=== PATIENT | female | born 1975 | race Hispanic/Latino ===

== ENCOUNTER 2017-09-10 23:26 | Emergency (ER) | payer SELFPAY ==
[2017-09-11 00:46] LABS: Absolute Lymphocytes (CBC) 1.1 K/uL (0.7-4.9); Absolute Monocytes 0.9 K/uL (0.1-1.3); Absolute Neutrophil 8.8 K/uL (1.8-8.0); Basophils % 0.2 % (0-1.3); Hematocrit 33.8 % (36.0-45.0); Lymphocytes % 10.3 % (15.3-44.8); MCH 31.3 pg (27.0-35.0); MCV 89.4 fL (80-100); MPV 8.7 fL (7.6-11.3); Monocytes % 7.8 % (3.3-12.3); RBC Red Blood Cell Count 3.79 M/uL (3.86-4.86)
[2017-09-11 00:47] LABS: Bicarbonate 23 mEq/L (21-31); Glucose Level 176 mg/dL (65-120); Lipase 23 U/L (22-51); Potassium 3.6 mEq/L (3.6-5.0); Sodium Level 138 mEq/L (135-145)
[2017-09-11 00:53] LABS: ALT/SGPT 56 IU/L (10-60); AST/SGOT 78 IU/L (10-42); Albumin 3.5 g/dL (3.2-5.5); Alkaline Phosphatase 70 IU/L (42-121); Amylase Level 38 U/L (28-100); BUN Blood Urea Nitrogen 11 mg/dL (6-20); Bilirubin Direct 0.1 mg/dL (0-0.2); Bilirubin Total 0.8 mg/dL (0.3-1.2); Protein, Total 7.2 g/dL (6.0-8.3)
[2017-09-11 01:11] LABS: Urine Blood 2+ (NEG); Urine Glucose NEGATIVE (NEG); Urine Protein NEGATIVE (NEG)
[2017-09-11 01:16] LABS: Urine Bacteria 20-50 /HPF (<20); Urine Culture Reflex Order REFLEXED; Urine RBC <5 /HPF (NONE SEEN)
[2017-09-11] MEDS ORDERED: TAMSULOSIN 0.4 MG SR CAP ONE (02:57)
[2017-09-11] MEDS ORDERED: NA CHLORIDE 0.9% 1,000 ML ONE (02:57)
[2017-09-11] MEDS ORDERED: KETOROLAC 30 MG/ML INJ ONE (02:57)
[2017-09-11] MEDS ORDERED: CEFTRIAXONE/SWI 1gm 1 GM/10 ML SYR ONE (02:57)
[2017-09-11] MEDS ORDERED: MAGNESIUM SULFATE 1 gm IVPB 1 GM/100 ML BAG IV ONE (02:57)
--- NOTE | 2017-09-11 03:17 | ER ---
Nurse's Notes [facility] Name: Katja Greenwood Age: 41 yrs Sex: Female : 1975 Arrival Date: 09/10/2017 Time: 23:28 Bed 23 Private MD: Diagnosis: Calculus of ureter-Left Presentation: 09/10 23:42 Presenting complaint: Patient states: C/O left side flank pain, pain with urination. rk2 Frequent urination. Right lower quad pain. Fever. Onset yesterday. Transition of care: patient was not received from another setting of care. Onset of symptoms was September 09, 2017. Risk Assessment: Do you want to hurt yourself or someone else? Patient reports no desire to harm self or others. Initial Sepsis Screen: Does the patient meet any 2 criteria? HR > 90 bpm. No. Patient's initial sepsis screen is negative. Does the patient have a suspected source of infection? Yes:. Care prior to arrival: None. 23:42 Method Of Arrival: Ambulatory rk2 23:42 Acuity: LATISHA 4 rk2 Triage Assessment: 23:51 General: Appears in no apparent distress. well groomed, well developed, well nourished, rk2 Behavior is calm, cooperative. Pain: Complains of pain in Right Flank, RLQ. Neuro: Level of Consciousness is alert, obeys commands, Oriented to person, place, time, situation. Respiratory: Airway is patent Respiratory effort is even, unlabored, Respiratory pattern is regular, symmetrical. GI: Reports. : Reports pain with urination, urinary frequency. Derm: Skin is pink, warm \T\ dry. 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 - Social history:: Smoking status: unknown. - Ebola Screening: : Patient negative for fever greater than or equal to 101.5 degrees Fahrenheit, and additional compatible Ebola Virus Disease symptoms. Screenin:54 Abuse screen: Denies threats or abuse. Nutritional screening: No deficits noted. rk2 Tuberculosis screening: No symptoms or risk factors identified. Fall Risk None identified. Assessment: 09/11 01:05 Reassessment: Pt. taken to CT by wheelchair. rk2 01:42 Reassessment: Patient appears in no apparent distress at this time. No changes from rk2 previously documented assessment. Patient and/or family updated on plan of care and expected duration. Pain level reassessed. Patient is alert, oriented x 3, equal unlabored respirations, skin warm/dry/pink. Pt. returned from CT. 03:53 Reassessment: Patient is alert, oriented x 3, equal unlabored respirations, skin bb warm/dry/pink. pt states she is feeling better denies pain at this time, pt verbalized understanding of and agrees to plan of care discharge instructions given pt ambulated with steady gait to exit accompanied by family. Vital Signs: 09/10 23:45 BP 113 / 74; Pulse 105; Resp 18; Temp 98.8(O); Pulse Ox 98% on R/A; rk2 09/11 03:00 BP 104 / 75; Pulse 100; Resp 18; Pulse Ox 100% on R/A; rk2 03:53 BP 93 / 63; Pulse 101; Resp 16 S; Temp 98.9(O); Pulse Ox 100% on R/A; Pain 0/10; bb ED Course: 09/10 23:28 Patient arrived in ED. ds1 23:34 Soniya Purvis, SHEREE is Primary Nurse. rk2 23:44 Triage completed. rk2 23:49 Charles Renee PA is PHCP. cp 23:49 Charles Frausto MD is Attending Physician. cp 23:54 Patient has correct armband on for positive identification. Placed in gown. Bed in low rk2 position. Call light in reach. 09/11 01:04 CT Abd/Pelvis - W/Contrast: no oral contrast Sent. rk2 01:[address] via wheelchair. kw1 01:24 CT completed. Patient tolerated procedure well. Patient moved back from CT. kw1 01:25 CT Abd/Pelvis - W/Contrast: no oral contrast In Process Unspecified. EDMS 03:17 Joshua Amado MD is Referral Physician. cp 03:54 No provider procedures requiring assistance completed. IV discontinued, intact, bb bleeding controlled, No redness/swelling at site. Pressure dressing applied. Administered Medications: Discontinued: Magnesium Sulfate 2 grams IVPB once over 2 hrs 03:10 Drug: Flomax 0.4 mg Route: PO; rk2 03:52 Follow up: Response: No adverse reaction bb 03:10 Drug: NS 0.9% 1000 ml Route: IV; Rate: 1 bolus; Site: right antecubital; rk2 03:52 Follow up: IV Status: Completed infusion; IV Intake: 1000ml bb 03:10 Drug: Rocephin - (cefTRIAXone) 1 grams Route: IVPB; Infused Over: 30 mins; Site: right rk2 antecubital; 03:52 Follow up: IV Status: Completed infusion; IV Intake: 50ml bb 03:11 Drug: TORadol 30 mg Route: IVP; Site: right antecubital; rk2 03:52 Follow up: Response: Pain is decreased bb 03:11 Drug: Magnesium Sulfate 2 grams Route: IVPB; Infused Over: 2 hrs; Site: right rk2 antecubital; 03:17 Follow up: Response: No adverse reaction; IV Status: Order to discontinue infusion rk2 03:16 Drug: Magnesium Sulfate 1 grams Route: IVPB; Infused Over: 1 hrs; Site: right rk2 antecubital; 03:52 Follow up: IV Status: Completed infusion; IV Intake: 100ml bb Intake: 03:52 IV: 1000ml; Total: 1000ml. bb 03:52 IV: 50ml; Total: 1050ml. bb 03:52 IV: 100ml; Total: 1150ml. bb Outcome: 03:17 Discharge ordered by MD. cp 03:54 Discharged to home ambulatory, with family. bb 03:54 Condition: stable 03:54 Discharge instructions given to patient, family, Instructed on discharge instructions, follow up and referral plans. medication usage, Demonstrated understanding of instructions, follow-up care, medications, Prescriptions given X 4. 03:55 Patient left the ED. bb Addendum: 09/14/2017 08:51 Addendum: Culture Results: Positive urine culture. No further action required. Bacteria i w sensitive to prescribed antibiotic. Bacteria is resistant to, has intermediate sensitivity, or is not tested against prescribed antibiotics. Report given to EPHRAIM for further evaluation and then to patient scheduling manager for follow up with patient. Signatures: Dispatcher [facility] [facility] Ivy Sterling ds1 Alexandra Ortiz RN RN bb Radha Allen RN RN iw Charles Renee PA PA Angy Kowalski kw1 Soniya Purvis RN RN rk2 Corrections: (The following items were deleted from the chart) 09/10 23:54 23:42 Presenting complaint: Patient states: C/O left side flank pain, pain with rk2 urination. Right lower quad pain. Fever. Onset yesterday. rk2
--- NOTE | 2017-09-11 03:56 | EDPHYS ---
Physician Documentation [facility] Name: Katja Greenwood Age: 41 yrs Sex: Female : 1975 Arrival Date: 09/10/2017 Time: 23:28 Bed 23 Private MD: ED Physician Charles Frausto HPI: 09/10 23:52 This 41 yrs old Female presents to ER via Ambulatory with complaints of Flank cp Pain, Fever, Urinary Frequency. 23:52 The patient complains of pain in the left mid back. The pain radiates to the abdomen. cp Onset: The symptoms/episode began/occurred yesterday. Associated signs and symptoms: Pertinent positives: dysuria, fever, urinary frequency, Pertinent negatives: diarrhea, pain radiating to the lower extremities, vomiting. Severity of pain: in the emergency department the pain is unchanged despite home interventions. 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 - Social history:: Smoking status: unknown. - Ebola Screening: : Patient negative for fever greater than or equal to 101.5 degrees Fahrenheit, and additional compatible Ebola Virus Disease symptoms. ROS: 23:58 Constitutional: Negative for body aches, chills, fever, poor PO intake. cp 23:58 Eyes: Negative for injury, pain, redness, and discharge. cp 23:58 ENT: Negative for drainage from ear(s), ear pain, sore throat, difficulty swallowing, difficulty handling secretions. 23:58 Cardiovascular: Negative for chest pain, edema, palpitations. 23:58 Respiratory: Negative for cough, shortness of breath, wheezing. 23:58 Abdomen/GI: Positive for abdominal pain, nausea, Negative for vomiting, diarrhea, constipation, anorexia. 23:58 Back: Positive for flank pain, on the left. 23:58 : Positive for urinary frequency, Negative for pelvic pain, vaginal bleeding, vaginal discharge. 23:58 MS/extremity: Negative for injury or acute deformity, decreased range of motion, pain, paresthesias. 23:58 Skin: Negative for cellulitis, rash. 23:58 Neuro: Negative for altered mental status, dizziness, headache, weakness. 23:58 All other systems are negative. Exam: 23:59 Constitutional: The patient appears in no acute distress, alert, awake, non-toxic, well cp developed, well nourished, uncomfortable. 23:59 Head/Face: Normocephalic, atraumatic. cp 23:59 Eyes: Periorbital structures: appear normal, Pupils: equal, round, and reactive to light and accomodation, Conjunctiva: normal, no exudate, no injection, Sclera: no appreciated abnormality, Lids and lashes: appear normal, bilaterally. 23:59 ENT: External ear(s): are unremarkable, Ear canal(s): are normal, clear, TM's: dullness, bilaterally, Nose: is normal, Mouth: Lips: moist, Oral mucosa: pink and intact, moist, Posterior pharynx: is normal, airway is patent, no erythema, no exudate. 23:59 Neck: ROM/movement: is normal, is supple, without pain, no range of motions limitations, no nuchal rigidity. 23:59 Chest/axilla: Inspection: normal, Palpation: is normal, no crepitus, no tenderness. 23:59 Cardiovascular: Rate: tachycardic, Rhythm: regular. 23:59 Respiratory: the patient does not display signs of respiratory distress, Respirations: normal, no use of accessory muscles, no retractions, no splinting, no tachypnea, labored breathing, is not present, Breath sounds: are clear throughout, no decreased breath sounds, no stridor, no wheezing. 23:59 Abdomen/GI: Inspection: abdomen appears normal, Bowel sounds: active, all quadrants, Palpation: soft, in all quadrants, moderate abdominal tenderness, in the right lower quadrant and left lower quadrant, rebound tenderness, is not appreciated. 23:59 Back: ROM is normal, CVA tenderness, is noted on the left. 23:59 Skin: cellulitis, is not appreciated, no rash present. 23:59 Neuro: Orientation: to person, place \T\ time. Mentation: lucid, able to follow commands, Cerebellar function: is grossly normal, Motor: moves all fours, strength is normal, Sensation: no obvious gross deficits. Vital Signs: 23:45 BP 113 / 74; Pulse 105; Resp 18; Temp 98.8(O); Pulse Ox 98% on R/A; rk2 09/11 03:00 BP 104 / 75; Pulse 100; Resp 18; Pulse Ox 100% on R/A; rk2 03:53 BP 93 / 63; Pulse 101; Resp 16 S; Temp 98.9(O); Pulse Ox 100% on R/A; Pain 0/10; bb MDM: 09/10 23:49 Patient medically screened. 09/11 00:00 Differential diagnosis: nephrolithiasis, pyelonephritis, UTI, diverticulitis, cp pancreatitis, ruptured AAA, dissecting AAA. 03:15 Data reviewed: vital signs, nurses notes, lab test result(s), radiologic studies, CT cp scan, and as a result, I will discharge patient. 03:15 Counseling: I had a detailed discussion with the patient and/or guardian regarding: the cp historical points, exam findings, and any diagnostic results supporting the discharge/admit diagnosis, lab results, radiology results, to return to the emergency department if symptoms worsen or persist or if there are any questions or concerns that arise at home. Response to treatment: the patient's symptoms have markedly improved after treatment, and as a result, I will discharge patient. 09/10 23:50 Order name: Amylase, Serum; Complete Time: 09/10 23:50 Order name: Basic Metabolic Panel; Complete Time: 09/11 01:59 Interpretation: Normal except: GLUC 176; CA 8.2. 09/10 23:50 Order name: CBC with Diff; Complete Time: 09/11 02:48 Interpretation: Normal except: RBC 3.79; HGB 11.8; HCT 33.8; LYM% 10.3; JANAE% 81.7; NEUT cp A 8.8. 09/10 23:50 Order name: Creatinine for Radiology; Complete Time: :59 09/10 23:50 Order name: Hepatic Function; Complete Time: 09/11 02:48 Interpretation: Normal except: SGOT 78; GLOB 3.7; A/G 0.9. 09/10 23:50 Order name: Lipase; Complete Time: 59 09/10 23:50 Order name: Urine Microscopic Only; Complete Time: : 09/11 02:00 Interpretation: Normal except: UBACT 20-50. 09/10 23:53 Order name: Urine Dipstick--Ancillary (enter results); Complete Time: 01:59 2 09/11 02:00 Interpretation: Normal except: UKET 1+; UBLD 2+; UESTR 1+. 09/10 23:53 Order name: Urine --Ancillary (enter results); Complete Time: 01:59 [facility] 09/11 02:00 Interpretation: URINE PREG NEG; Reviewed. cp 09/10 23:56 Order name: CT Abd/Pelvis - W/Contrast: no oral contrast 09/11 01:18 Order name: Urine Culture EDOR 09/10 23:50 Order name: Urine Test (obtain specimen); Complete Time: 00:09 09/10 23:50 Order name: IV Saline Lock; Complete Time: 00:09 09/10 23:50 Order name: Labs collected and sent; Complete Time: 00:10 09/10 23:50 Order name: Urine Dipstick-Ancillary (obtain specimen); Complete Time: 00:10 cp 09/11 03:01 Order name: Urine Strainer; Complete Time: 03:18 cp Administered Medications: Discontinued: Magnesium Sulfate 2 grams IVPB once over 2 hrs 03:10 Drug: Flomax 0.4 mg Route: PO; rk2 03:52 Follow up: Response: No adverse reaction bb 03:10 Drug: NS 0.9% 1000 ml Route: IV; Rate: 1 bolus; Site: right antecubital; rk2 03:52 Follow up: IV Status: Completed infusion; IV Intake: 1000ml bb 03:10 Drug: Rocephin - (cefTRIAXone) 1 grams Route: IVPB; Infused Over: 30 mins; Site: right rk2 antecubital; 03:52 Follow up: IV Status: Completed infusion; IV Intake: 50ml bb 03:11 Drug: TORadol 30 mg Route: IVP; Site: right antecubital; rk2 03:52 Follow up: Response: Pain is decreased bb 03:11 Drug: Magnesium Sulfate 2 grams Route: IVPB; Infused Over: 2 hrs; Site: right rk2 antecubital; 03:17 Follow up: Response: No adverse reaction; IV Status: Order to discontinue infusion rk2 03:16 Drug: Magnesium Sulfate 1 grams Route: IVPB; Infused Over: 1 hrs; Site: right rk2 antecubital; 03:52 Follow up: IV Status: Completed infusion; IV Intake: 100ml bb Disposition: 09/11/17 03:17 Discharged to Home. Impression: Calculus of ureter - Left. - Condition is Stable. - Discharge Instructions: Kidney Stones, Ureteral Colic. - Prescriptions for Flomax 0.4 mg Oral Capsule, Sust. Release 24 hr - take 1 capsule by ORAL route once daily for 5 days 1/2 hour following the same meal each day; 5 capsule. Cipro 500 mg Oral Tablet - take 1 tablet by ORAL route every 12 hours for 7 days; 14 tablet. Zofran 4 mg Oral Tablet - take 1 tablet by ORAL route every 12 hours As needed; 20 tablet. Tylenol- Codeine #3 300-30 mg Oral Tablet - take 2 tablets by ORAL route every 6 hours As needed no driving while taking medication; 20 tablet. - Medication Reconciliation Form, Thank You Letter, Antibiotic Education, Prescription Opioid Use form. - Follow up: Joshua Amado; When: 2 - 3 days; Reason: if symptoms continue. - Problem is new. - Symptoms have improved. Addendum: 09/14/2017 10:00 Co-signature as Attending Physician, Charles Frausto MD I agree with the assessment and c chaves plan of care. Signatures: Dispatcher [employer] EDCharles Elizalde MD MD cha Ballard, Brenda, RN RN Charles Silverman PA PA cp Kidder, Rhonda, RN RN rk2 Corrections: (The following items were deleted from the chart) 09/11 02:48 01:59 Normal except: RBC 3.79; HGB 11.8; HCT 33.8. cp cp 03:55 03:17 09/11/2017 03:17 Discharged to Home. Impression: Calculus of ureter - Left. bb Condition is Stable. Discharge Instructions: Kidney Stones, Ureteral Colic. Prescriptions for Flomax 0.4 mg Oral Capsule, Sust. Release 24 hr - take 1 capsule by ORAL route once daily for 5 days 1/2 hour following the same meal each day; 5 capsule, Cipro 500 mg Oral Tablet - take 1 tablet by ORAL route every 12 hours for 7 days; 14 tablet, Zofran 4 mg Oral Tablet - take 1 tablet by ORAL route every 12 hours As needed; 20 tablet, Tylenol-Codeine #3 300-30 mg Oral Tablet - take 2 tablets by ORAL route every 6 hours As needed no driving while taking medication; 20 tablet. and Forms are Medication Reconciliation Form, Thank You Letter, Antibiotic Education, Prescription Opioid Use. Follow up: Joshua Amado; When: 2 - 3 days; Reason: if symptoms continue. Problem is new. Symptoms have improved. cp
--- NOTE | 2017-09-11 09:08 | RAD REPORT ---
EXAM DESCRIPTION: CT - Abdomen Pelvis W Contrast - 09/11/2017 5:16 am CLINICAL HISTORY: Abdominal pain/right lower quadrant pain. Left flank pain. Fever COMPARISON: none. TECHNIQUE: Computed axial tomography of the abdomen pelvis was obtained. 100 cc Isovue-300 was admin istered intravenously. Oral contrast was not requested which limits evaluation of bowel.A preliminary report was generated by [employer] and reviewed prior to this dictation All CT scans are performed using dose optimization technique as appropriate and may include automated exposure control or mA/KV adjustment according to patient size. FINDINGS: The liver, spleen, pancreas, adrenal and right kidney appear unremarkable. Low-density is present within the upper pole of the left kidney reaching the periphery. The wall of p ortions of the left ureter enhance. A 2 millimeter calculus is present within the left pelvis. Minima l right hydronephrosis is present. There is no evidence of diverticulitis. The appendix is normal. IMPRESSION: Low-density within the left kidney consistent with mild to moderate pyelonephritis. Enha ncing wall of the left ureter indicative of additional infection. 2 millimeter calculus within the le ft pelvis. The left ureter is not well visualized with respect to the calculus. This probably represe nts a phlebolith. A nonobstructing calculus although possible is considered less likely
== END 2017-09-11 03:55 | disposition home or self-care (01) ==
LOC: ER 23:26
DX: N20.1 Calculus of ureter (principal)
CPT/HCPCS: 36415; 74177; 80048; 80076; 81003; 81015; 81025; 82150; 83690; 85025; 87077; 87086; 87088; 87186; 96365; 96375; 99284; J0696; J3475; J7030; Q9967

== ENCOUNTER 2019-06-10 18:41 | Emergency (ER) | payer SELFPAY ==
[2019-06-10] MEDS ORDERED: NA CHLORIDE 0.9% 1,000 ML ONE (20:15)
[2019-06-10] MEDS ORDERED: ACETAMINOPHEN 500 MG TAB ONE (20:15)
[2019-06-10 20:37] LABS: Absolute Lymphocytes (CBC) 0.5 K/uL (0.7-4.9); Basophils % 0.1 % (0-1.3); Lymphocytes % 6.5 % (15.3-44.8); MPV 8.1 fL (7.6-11.3); RBC Red Blood Cell Count 3.99 M/uL (3.86-4.86)
[2019-06-10 20:39] LABS: Urine Blood 2+ (NEG); Urine Glucose NEGATIVE (NEG); Urine Protein 1+ (NEG)
[2019-06-10] MEDS ORDERED: CEFTRIAXONE/SWI 1gm 1 GM/10 ML SYR ONE (20:49)
[2019-06-10 20:52] LABS: Potassium 3.4 mmol/L (3.5-5.1)
[2019-06-10 21:00] LABS: Urine Amorphous Sediment 1+ /HPF (NONE SEEN); Urine Bacteria LOADED /HPF (<20); Urine Culture Reflex Order NOT NEEDED; Urine Mucus 2+ /HPF (NONE SEEN)
[2019-06-10 21:01] LABS: Blood Morphology Comment NOT SEEN (NOT SEEN); Platelet Estimate ADEQ; Urine White Blood Cell Casts OK
--- NOTE | 2019-06-10 21:58 | EDPHYS ---
Physician Documentation [facility] Name: Katja Greenwood Age: 43 yrs Sex: Female : 1975 Arrival Date: 06/10/2019 Time: 18:46 Bed 27 Private MD: ED Physician Kelvin Johnson HPI: 06/09 21:55 This 43 yrs old Female presents to ER via Ambulatory with complaints of flank kb pain and fever. 21:55 The patient complains of pain in the right flank. The pain radiates to the abdomen. kb Onset: The symptoms/episode began/occurred last night. Modifying factors: The symptoms are alleviated by nothing. the symptoms are aggravated by palpation/percussion. Associated signs and symptoms: Pertinent positives: dysuria, fever, urinary frequency, Pertinent negatives: diarrhea, dizziness, headache, hematuria, nausea, pain radiating to the lower extremities, vomiting. Severity of pain: At its worst the pain was moderate in the emergency department the pain is unchanged. The patient has not experienced similar symptoms in the past. The patient has not recently seen a physician. 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 - Social history:: Smoking status: Patient denies any tobacco usage or history of. ROS: 21:55 Cardiovascular: Negative for chest pain, palpitations, and edema, Respiratory: Negative kb for shortness of breath, cough, wheezing, and pleuritic chest pain, MS/Extremity: Negative for injury and deformity, Skin: Negative for injury, rash, and discoloration, Neuro: Negative for headache, weakness, numbness, tingling, and seizure. 21:55 Constitutional: Positive for fever. 21:55 Abdomen/GI: Positive for abdominal pain. 21:55 : Positive for flank pain, urinary frequency, burning with urination. Exam: 21:55 Constitutional: This is a well developed, well nourished patient who is awake, alert, kb and in no acute distress. Head/Face: Normocephalic, atraumatic. Neck: Trachea midline, no thyromegaly or masses palpated, and no cervical lymphadenopathy. Supple, full range of motion without nuchal rigidity, or vertebral point tenderness. No Meningismus. Chest/axilla: Normal chest wall appearance and motion. Nontender with no deformity. No lesions are appreciated. Cardiovascular: Regular rate and rhythm with a normal S1 and S2. No gallops, murmurs, or rubs. Normal PMI, no JVD. No pulse deficits. Respiratory: Lungs have equal breath sounds bilaterally, clear to auscultation and percussion. No rales, rhonchi or wheezes noted. No increased work of breathing, no retractions or nasal flaring. Skin: Warm, dry with normal turgor. Normal color with no rashes, no lesions, and no evidence of cellulitis. MS/ Extremity: Pulses equal, no cyanosis. Neurovascular intact. Full, normal range of motion. Neuro: Awake and alert, GCS 15, oriented to person, place, time, and situation. Cranial nerves II-XII grossly intact. Motor strength 5/5 in all extremities. Sensory grossly intact. Cerebellar exam normal. Normal gait. 21:55 Abdomen/GI: Inspection: abdomen appears normal, Bowel sounds: normal, in all quadrants, Palpation: moderate abdominal tenderness, in the right upper quadrant and right lower quadrant. 21:55 Back: CVA tenderness, that is moderate, is noted on the right. Vital Signs: 19:47 BP 135 / 83; Pulse 113; Resp 20; Temp 102.8; Pulse Ox 97% on R/A; aj1 20:52 BP 107 / 66; Pulse 93; Resp 17; Pulse Ox 100% on R/A; mg2 21:17 Temp 98.6(O); mg2 MDM: 19:06 Patient medically screened. kb 20:01 Patient medically screened. kb 21:57 Data reviewed: vital signs, nurses notes. Data reviewed: lab test result(s), radiologic kb studies. Data interpreted: Pulse oximetry: on room air is 100 %. Interpretation: normal. Counseling: I had a detailed discussion with the patient and/or guardian regarding: the historical points, exam findings, and any diagnostic results supporting the discharge/admit diagnosis, lab results, radiology results, the need for outpatient follow up, a family practitioner, to return to the emergency department if symptoms worsen or persist or if there are any questions or concerns that arise at home. 06/09 20:02 Order name: CBC with Diff; Complete Time: 21:06 kb 06/09 20:02 Order name: Basic Metabolic Panel; Complete Time: 20:54 kb 06/09 20:07 Order name: Urine Culture mg2 06/09 20:07 Order name: Urine Microscopic Only; Complete Time: 21:06 mg2 06/09 20:32 Order name: Urine Dipstick--Ancillary (enter results); Complete Time: 20:40 sp 06/09 20:32 Order name: Urine --Ancillary (enter results); Complete Time: 20:40 sp 06/09 20:02 Order name: IV Start; Complete Time: 20:21 kb 06/09 20:02 Order name: CT Abd/Pelvis - IV Contrast Only kb 06/09 20:39 Order name: CBC Smear Scan; Complete Time: 21:06 EDMS Administered Medications: 20:21 Drug: Tylenol 1000 mg Route: PO; mg2 21:22 Follow up: Response: No adverse reaction; Temperature is decreased mg2 20:21 Drug: NS 0.9% 1000 ml Route: IV; Rate: 1000 ml; Site: right antecubital; mg2 21:23 Follow up: Response: No adverse reaction; IV Status: Completed infusion; IV Intake: mg2 1000ml 20:49 Drug: Rocephin 1 grams Route: IV; Rate: calculated rate; Site: right antecubital; mg2 Disposition: 06/10 03:29 Co-signature as Attending Physician, Kelvin Johnson MD I agree with the assessment and tw4 plan of care. Disposition: 06/10/19 21:58 Discharged to Home. Impression: Acute tubulo-interstitial nephritis. - Condition is Stable. - Discharge Instructions: Pyelonephritis, Adult, [id number]. - Prescriptions for cefpodoxime 200 mg Oral Tablet - take 1 tablet by ORAL route every 12 hours for 10 days with food; 20 tablet. - Medication Reconciliation Form, Thank You Letter, Antibiotic Education, Prescription Opioid Use form. - Follow up: Emergency Department; When: As needed; Reason: Worsening of condition. Follow up: Private Physician; When: 2 - 3 days; Reason: Recheck today's complaints, Continuance of care, Re-evaluation by your physician. Signatures: Dispatcher [employer] EDMey Johnson, PULP GRINDER-C PULP GRINDER-Ckb Jaymie Hilliard, RN RN aj1 Sandy Salinas RN RN lp1 Kelvin Johnson MD MD tw4 Dante Mccarthy, RN RN mg2 Corrections: (The following items were deleted from the chart) 06/09 22:07 21:58 06/10/2019 21:58 Discharged to Home. Impression: Acute tubulo-interstitial lp1 nephritis. Condition is Stable. Forms are Medication Reconciliation Form, Thank You Letter, Antibiotic Education, Prescription Opioid Use. Follow up: Emergency Department; When: As needed; Reason: Worsening of condition. Follow up: Private Physician; When: 2 - 3 days; Reason: Recheck today's complaints, Continuance of care, Re-evaluation by your physician. kb
--- NOTE | 2019-06-10 21:58 | ER ---
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 I have pain on my side, and I aj1 have chills that started last night. Patient reports dysuria and urinary frequency. Coronavirus screen: The patient has NOT traveled to a country currently being monitored by the [facility] within the last 14 days. Ebola Screen: Patient denies travel to an Ebola-affected area in the 21 days before illness onset. Initial Sepsis Screen: Does the patient meet any 2 criteria? Temp <36.0*C (96.8*F)) or > 38.3*C (100.9*F). HR > 90 bpm. Does the patient have a suspected source of infection? Yes: Dysuria/Frequency/Urgency/UTI. Initial Sepsis Screen:. Risk Assessment: Do you want to hurt yourself or someone else? Patient reports no desire to harm self or others. 19:47 Method Of Arrival: Ambulatory aj1 19:47 Acuity: LATISHA 3 aj1 20:52 Onset of symptoms was May 2019. mg2 Triage Assessment: 19:51 General: Appears in no apparent distress. comfortable, Behavior is calm, cooperative, aj1 appropriate for age. Pain: Pain currently is 10 out of 10 on a pain scale. Neuro: Level of Consciousness is awake, alert, obeys commands. Cardiovascular: Patient's skin is warm and dry. Respiratory: Airway is patent Respiratory effort is even, unlabored, Respiratory pattern is regular, symmetrical. 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 - Social history:: Smoking status: Patient denies any tobacco usage or history of. Screenin:57 Abuse screen: Denies threats or abuse. Denies injuries from another. Nutritional mg2 screening: No deficits noted. Tuberculosis screening: No symptoms or risk factors identified. 20:52 Fall Risk IV access (20 points). mg2 Assessment: 20:30 General: Appears in no apparent distress. comfortable, Behavior is calm, cooperative. mg2 Pain: Complains of pain in right flank Pain does not radiate. Quality of pain is described as aching, Pain began gradually. 20:30 Neuro: Level of Consciousness is awake, alert, obeys commands, Oriented to person, mg2 place, time, situation. Cardiovascular: Capillary refill < 3 seconds Patient's skin is warm and dry. Respiratory: Airway is patent Respiratory effort is even, unlabored, Respiratory pattern is regular, symmetrical. GI: No signs and/or symptoms were reported involving the gastrointestinal system. : Reports pain in right flank(s). EENT: No signs and/or symptoms were reported regarding the EENT system. Derm: Skin is intact, is healthy with good turgor, Skin is pink, warm \T\ dry. normal. Musculoskeletal: Circulation, motion, and sensation intact. Capillary refill < 3 seconds. 22:07 Reassessment: Patient is alert, oriented x 3, equal unlabored respirations, skin lp1 warm/dry/pink. Patient understands discharge instructions and medication usage. Vital Signs: 19:47 BP 135 / 83; Pulse 113; Resp 20; Temp 102.8; Pulse Ox 97% on R/A; aj1 20:52 BP 107 / 66; Pulse 93; Resp 17; Pulse Ox 100% on R/A; mg2 21:17 Temp 98.6(O); mg2 ED Course: 18:46 Patient arrived in ED. mr 18:47 Mey Meza FNP-C is PHCP. kb 18:47 Luis Alfredo Brink MD is Attending Physician. kb 19:07 Patient's name was called from ER lobby. No response. aj1 19:24 Patient's name was called from ER lobby. No response. aj1 19:50 Triage completed. aj1 19:51 Dante Mccarthy, SHEREE is Primary Nurse. mg2 19:51 Arm band placed on Patient placed in an exam room. aj1 20:01 Mey Meza FNP-C is PHCP. kb 20:01 Kelvin Johnson MD is Attending Physician. kb 20:21 No provider procedures requiring assistance completed. Inserted saline lock: 20 gauge mg2 in right antecubital area, using aseptic technique. Blood collected. 20:31 Radiology exam delayed due to lab results not completed at this time. (BUN/Creatinine). vm2 20:52 Patient has correct armband on for positive identification. mg2 21:15 CT Abd/Pelvis - IV Contrast Only In Process Unspecified. EDMS 22:07 IV discontinued, No redness/swelling at site. Pressure dressing applied. lp1 Administered Medications: 20:21 Drug: Tylenol 1000 mg Route: PO; mg2 21:22 Follow up: Response: No adverse reaction; Temperature is decreased mg2 20:21 Drug: NS 0.9% 1000 ml Route: IV; Rate: 1000 ml; Site: right antecubital; mg2 21:23 Follow up: Response: No adverse reaction; IV Status: Completed infusion; IV Intake: mg2 1000ml 20:49 Drug: Rocephin 1 grams Route: IV; Rate: calculated rate; Site: right antecubital; mg2 Intake: 21:23 IV: 1000ml; Total: 1000ml. mg2 Outcome: 21:58 Discharge ordered by . kb 22:07 Discharged to home ambulatory. lp1 22:07 Condition: good 22:07 Discharge instructions given to patient, Instructed on discharge instructions, follow up and referral plans. medication usage, Demonstrated understanding of instructions, follow-up care, medications, Prescriptions given X 1. 22:07 Patient left the ED. lp1 Addendum: 06/13/2019 08:19 Addendum: Culture Results: Positive urine culture. Bacteria is resistant to, has i w intermediate sensitivity, or is not tested against prescribed antibiotics. Report given to EPHRAIM for further evaluation and then to corporate secretary for follow up with patient. Phone call Attempt #1 pt s/s improved , no further action needed. Signatures: Dispatcher [employer] EDMS Mey Meza, COLORING CHECKER-C COLORING CHECKER-Jaymie Pedro, SHEREE RN Cathie Castillo Radha Allen, SHEREE BENTLEY iw Sandy Salinas RN RN lp1 Melinda Peraza vm2 Dante Mccarthy RN RN mg2
[2019-06-10 22:14] VITALS: BP 107/66; O2SAT 100
[2019-06-10 22:15] VITALS: TEMP 98.6
--- NOTE | 2019-06-13 10:23 | RAD REPORT ---
EXAM DESCRIPTION: CT - Abdomen Pelvis W Contrast - 06/11/2019 5:36 am CLINICAL HISTORY: Flank pain. COMPARISON: 09/10/2017 TECHNIQUE: CT scan of the abdomen and pelvis was performed with IV contrast. This exam was performed according to our departmental dose-optimization program, which includes automated exposure control, adjustment of the mA and/or kV according to patient size and/or use of iterative reconstruction techn ique. FINDINGS: The lung bases are clear. No pleural or pericardial effusions. The gallbladder is contract ed, limiting evaluation. The liver, spleen, pancreas, adrenal glands, and left kidney are unremarkabl e. There are areas of cortical hypodensity in the right kidney consistent with a striated nephrogram seen in acute polynephritis. There is also wall enhancement of the right ureter. No hydronephrosis. T he uterus and ovaries are unremarkable. No small bowel obstruction. The appendix is normal. No evidence of acute diverticulitis. No adenopath y, free fluid, or free air is identified. The bilateral pars defects at L5-S1 without listhesis. Aort a is normal caliber. No body wall hernia. IMPRESSION: Finding consistent with acute pyelonephritis of the right kidney. Electronically signed by: Neeraj Eaton MD 06/10/2019 9:29 PM CDT Due to temporary technical issues with the PACS/Fluency reporting system, reports are being signed by the in house radiologist as a courtesy to ensure prompt reporting. The interpreting radiologist is f ully responsible for the content of the report.
== END 2019-06-10 22:07 | disposition home or self-care (01) ==
LOC: ER 18:41
DX: N10 Acute pyelonephritis (principal); Z87.442 Personal history of urinary calculi
CPT/HCPCS: 36415; 74177; 80048; 81003; 81015; 81025; 85025; 87077; 87086; 87088; 87186; 96361; 96374; 99284; J0696; J7030; Q9967

== ENCOUNTER 2020-12-25 10:25 | Emergency (ER) | payer SELFPAY ==
[2020-12-25 11:13] LABS: Urine Blood 2+ (Negative); Urine Glucose Negative (Negative); Urine Protein Negative (Negative); Urine Specific Gravity 1.015 (1.005-1.030); Urine pH 8.5 (5.0-7.0)
[2020-12-25 11:19] LABS: Absolute Lymphocytes (CBC) 1.8 K/uL (0.7-4.9); Basophils % 0.4 % (0-1.3); Lymphocytes % 22.2 % (15.3-44.8); MPV 7.5 fL (7.6-11.3)
[2020-12-25 11:33] LABS: Urine Bacteria >50 /HPF (<20)
--- NOTE | 2020-12-25 12:09 | RAD REPORT ---
EXAM DESCRIPTION: CT - Stone Protocol - 12/25/2020 11:22 am CLINICAL HISTORY: FLANK PAIN COMPARISON: Abdomen Pelvis W Contrast dated 06/10/2019; Abdomen Pelvis W Contrast dated 09/11/2017 TECHNIQUE: Axial 3 mm thick images were obtained without oral or IV contrast. The [id number] span s the entirety of the system including uppermost abdomen and lung bases. All CT scans are performed using dose optimization technique as appropriate and may include automated exposure control or mA/KV adjustment according to patient size. FINDINGS: There is mild fullness or dilatation of each collecting system to at least the pelvic inle t level. The distal most aspects of the ureters are difficult to identify. This degree of dilatation is similar to the May 2019 study. No obstructing or nonobstructing calculi are present. No suspicio us renal masses. Isodense masses and pyelonephritis are not excluded on a stone protocol CT scan. No significant adrenal finding. Mostly contracted urinary bladder shows no stone, mass or suspicious fin ding. Uterus and ovaries show no suspicious findings on noncontrast imaging. Imaged portions of the liver, spleen and pancreas show no suspicious findings on non-contrast imaging . Gallbladder is contracted. No biliary tree dilatation. No suspicious bowel findings. No appendicitis. Moderate stool volume present throughout the colon. No hernia, mass or bulky lymphadenopathy noted. No free air, free fluid or inflammatory stranding. No significant bony abnormality. IMPRESSION: Patient has bilateral mild fullness or dilatation of the collecting systems without obst ructing calculi. This degree of dilatation is similar to the May 2019 study. Pyelonephritis and isodense masses are not excluded on a stone protocol study. Remainder of the study, as detailed above, is without acute or significant finding. Isodense masses and pyelonephritis are not excluded on stone protocol technique.
[2020-12-25 12:16] LABS: Urine Specific Gravity/Preg 1.015 (1.005-1.030)
--- NOTE | 2020-12-25 12:22 | EDPHYS ---
Physician Documentation [facility] Name: Katja Greenwood Age: 45 yrs Sex: Female : 1975 Arrival Date: 12/25/2020 Time: 10:27 Bed 20 Private MD: ED Physician Charles Frausto HPI: 12/25 12:55 This 45 yrs old Female presents to ER via Ambulatory with complaints of Flank kb Pain - right. 12:55 The patient complains of pain in the right flank. The pain radiates to the suprapubic kb area and right lower quadrant. The patient has experienced a previous episode. The patient has not recently seen a physician. 12:55 Onset: The symptoms/episode began/occurred 5 day(s) ago. Modifying factors: The kb symptoms are alleviated by nothing. the symptoms are aggravated by urinating. Associated signs and symptoms: Pertinent positives: dysuria, urinary frequency, Pertinent negatives: fever. Severity of pain: At its worst the pain was moderate in the emergency department the pain is unchanged. Pt reports dysuria, frequency, and right flank pain for 5 days. Reports history of kidney stones. . Historical: - Allergies: 10:55 No Known Allergies; aa5 - Home Meds: 10:55 None [Active]; aa5 - PMHx: 10:55 Kidney stones; aa5 - Immunization history:: Client reports receiving the 2nd dose of the Covid vaccine. - Social history:: Smoking status: Patient denies any tobacco usage or history of. ROS: 12:54 Constitutional: Negative for fever, chills, and weight loss. kb 12:54 : Positive for urinary symptoms, flank pain, urinary frequency, burning with urination. 12:54 All other systems are negative. Exam: 12:54 Constitutional: This is a well developed, well nourished patient who is awake, alert, kb and in no acute distress. Head/Face: Normocephalic, atraumatic. ENT: Moist Mucous membranes Respiratory: Respirations even and unlabored. No increased work of breathing, no retractions or nasal flaring. Skin: Warm, dry with normal turgor. Normal color. MS/ Extremity: Pulses equal, no cyanosis. Neurovascular intact. Full, normal range of motion. Neuro: Awake and alert, GCS 15, oriented to person, place, time, and situation. Moves all extremities. Normal gait. Psych: Awake, alert, with orientation to person, place and time. Behavior, mood, and affect are within normal limits. 12:54 Abdomen/GI: Inspection: abdomen appears normal, Bowel sounds: normal, in all quadrants, Palpation: soft, in all quadrants, mild abdominal tenderness, in the right lower quadrant. 12:54 Back: CVA tenderness, that is mild, is noted on the right. Vital Signs: 10:56 BP 112 / 70; Pulse 102; Resp 18 S; Temp 98.3(TE); Pulse Ox 98% on R/A; aa5 11:18 BP 105 / 64; Pulse 97; Resp 16; Pulse Ox 96% ; tc5 12:08 BP 104 / 69; Pulse 87; Resp 16; Pulse Ox 100% ; Pain 10/10; tc5 12:37 BP 105 / 60; Pulse 81; Resp 18; Pulse Ox 100% ; tc5 MDM: 10:57 Patient medically screened. kb 12:19 Data reviewed: vital signs, nurses notes. Data interpreted: Pulse oximetry: on room air kb is 100 %. Interpretation: normal. Counseling: I had a detailed discussion with the patient and/or guardian regarding: the historical points, exam findings, and any diagnostic results supporting the discharge/admit diagnosis, lab results, radiology results, the need for outpatient follow up, a family practitioner, to return to the emergency department if symptoms worsen or persist or if there are any questions or concerns that arise at home. 12/25 10:57 Order name: Urine Microscopic Only; Complete Time: 11:38 kb 12/25 10:57 Order name: Basic Metabolic Panel; Complete Time: 11:38 kb 12/25 10:57 Order name: CBC with Diff; Complete Time: 11:38 kb 12/25 11:13 Order name: Urine Dipstick-Ancillary; Complete Time: 11:14 EDMS 12/25 11:32 Order name: Urine --Ancillary (enter results); Complete Time: 12:17 bd 12/25 11:34 Order name: Urine Culture EDGA 12/25 10:57 Order name: Urine Dipstick-Ancillary (obtain specimen); Complete Time: 12:38 kb 12/25 10:57 Order name: Urine Test (obtain specimen); Complete Time: 12:38 kb 12/25 10:57 Order name: CT Stone Protocol; Complete Time: 12:16 kb 12/25 10:57 Order name: IV Saline Lock; Complete Time: 12:37 kb 12/25 10:57 Order name: Labs collected and sent; Complete Time: 12:38 kb Administered Medications: 12:04 Drug: Rocephin (cefTRIAXone) 1 grams Route: IV; Rate: calculated rate; Site: right tc5 antecubital; 12:35 Follow up: Response: No adverse reaction tc5 Disposition Summary: 12/25/20 12:21 Discharge Ordered Location: Home kb Condition: Stable kb Diagnosis - UTI/ Urinary tract infection, site not specified kb Followup: kb - With: Emergency Department - When: As needed - Reason: Worsening of condition Followup: kb - With: Private Physician - When: 2 - 3 days - Reason: Recheck today's complaints, Continuance of care, Re-evaluation by your physician Discharge Instructions: - Discharge Summary Sheet kb - Urinary Tract Infection, Adult, [id number] kb Forms: - Medication Reconciliation Form kb - Thank You Letter kb - Antibiotic Education kb - Prescription Opioid Use kb Prescriptions: - Augmentin 875-125 mg Oral Tablet - take 1 tablet by ORAL route every 12 hours for 10 days; 20 tablet; Refills: 0, kb Product Selection Permitted Addendum: 12/27/2020 10:59 Co-signature as Attending Physician, Charles Frausto MD I agree with the assessment and c chaves plan of care. Signatures: Dispatcher [employer] Mey Cerna, LIQUEFIER-C LIQUEFIER-Charles Villatoro MD MD cha Calderon, Audri, RN RN aa5 Maryanne Godinez, RN RN tc5
--- NOTE | 2020-12-25 12:22 | ER ---
Nurse's Notes [facility] Name: Katja Greenwood Age: 45 yrs Sex: Female : 1975 Arrival Date: 12/25/2020 Time: 10:27 Bed 20 Private MD: Diagnosis: UTI/ Urinary tract infection, site not specified Presentation: 12/25 10:53 Chief complaint: Patient states: "my right kidney has been hurting for 5 days". Pt also aa5 reports burning with urination and urinary frequency. Coronavirus screen: At this time, the client does not indicate any symptoms associated with coronavirus-19. Ebola Screen: Patient negative for fever greater than or equal to 101.5 degrees Fahrenheit, and additional compatible Ebola Virus Disease symptoms. Initial Sepsis Screen: Does the patient meet any 2 criteria? HR > 90 bpm. Does the patient have a suspected source of infection? Yes:. Risk Assessment: Do you want to hurt yourself or someone else? Patient reports no desire to harm self or others. Onset of symptoms was November 2020. 10:53 Method Of Arrival: Ambulatory aa5 10:53 Acuity: LATISHA 3 aa5 Historical: - Allergies: 10:55 No Known Allergies; aa5 - Home Meds: 10:55 None [Active]; aa5 - PMHx: 10:55 Kidney stones; aa5 - Immunization history:: Client reports receiving the 2nd dose of the Covid vaccine. - Social history:: Smoking status: Patient denies any tobacco usage or history of. Screenin:19 Abuse screen: Denies threats or abuse. Denies injuries from another. Nutritional tc5 screening: No deficits noted. Tuberculosis screening: No symptoms or risk factors identified. Fall Risk None identified. Assessment: 11:16 General: Appears uncomfortable, Behavior is calm, cooperative, appropriate for age. tc5 Pain: Complains of pain in back. Neuro: No deficits noted. Cardiovascular: No deficits noted. Respiratory: No deficits noted. GI: No deficits noted. : Reports rt flank pain, urinary frequency, urgency x 5 days, HX of kidney stones. pt rates the pain rt flank 10/10. Vital Signs: 10:56 BP 112 / 70; Pulse 102; Resp 18 S; Temp 98.3(TE); Pulse Ox 98% on R/A; aa5 11:18 BP 105 / 64; Pulse 97; Resp 16; Pulse Ox 96% ; tc5 12:08 BP 104 / 69; Pulse 87; Resp 16; Pulse Ox 100% ; Pain 10/10; tc5 12:37 BP 105 / 60; Pulse 81; Resp 18; Pulse Ox 100% ; tc5 ED Course: 10:27 Patient arrived in ED. am2 10:40 Mey Meza FNP-C is [facility]. kb 10:40 Charles Frausto MD is Attending Physician. kb 10:53 Arm band placed on. aa5 10:55 Triage completed. aa5 11:01 Maryanne Godinez, RN is Primary Nurse. tc5 11:19 Inserted saline lock: 20 gauge in right antecubital area, using aseptic technique. tc5 Blood collected. 11:22 CT Stone Protocol In Process Unspecified. EDMS Administered Medications: 12:04 Drug: Rocephin (cefTRIAXone) 1 grams Route: IV; Rate: calculated rate; Site: right tc5 antecubital; 12:35 Follow up: Response: No adverse reaction tc5 Outcome: 12:21 Discharge ordered by . kb 13:08 Patient left the ED. tc5 Addendum: 12/28/2020 07:09 Addendum: Culture Results: Positive urine culture. No further action required. Bacteria e b sensitive to prescribed antibiotic. Signatures: Dispatcher [employer] EDMS Mey Meza FNP-C FNP-Saba Ziegler RN RN aa5 Nadege Song am2 Blanca Meza Maryanne Godinez, RN RN tc5 Corrections: (The following items were deleted from the chart) 12/25 10:57 10:53 Initial Sepsis Screen: Does the patient meet any 2 criteria? No. Patient's aa5 initial sepsis screen is negative. Does the patient have a suspected source of infection? Yes: aa5
[2020-12-25] MEDS ORDERED: CEFTRIAXONE 1000 MG/VIAL ONE (12:27)
[2020-12-25 13:14] VITALS: TEMP 98.3
[2020-12-25 13:17] VITALS: O2SAT 100
[2020-12-25 13:18] VITALS: BP 105/60
== END 2020-12-25 13:08 | disposition home or self-care (01) ==
LOC: ER 10:25
DX: N39.0 Urinary tract infection, site not specified (principal); Z87.442 Personal history of urinary calculi
CPT/HCPCS: 36415; 74176; 76377; 80048; 81003; 81015; 81025; 85025; 87077; 87086; 87088; 87186; 96374; 99284